=== PATIENT | female | born 1940 | race Caucasian/White ===

== ENCOUNTER 2017-07-04 19:31 | Emergency (ER) | payer MEDICARE ==
[~2017-07-04] VITALS: Ht 167.6 cm; Wt 121.3 kg
[~2017-07-04 19:31] MED LIST: ADVAI100I PO; FURO20 PO; GNP50LIQ PO; HYDR10SO PO; MOBI7.5T PO; PERI8.6T PO; RAMI10CA35 PO; RIVA20 PO; ROSU40 PO; ZIAC106.25 PO
[2017-07-04 19:39] VITALS: BP 124/75; PULSE 86; RESP 18; TEMP 98.1; O2SAT 95
[2017-07-04] MEDS ORDERED: MELO7.5T27 PO (19:52)
[2017-07-04] MEDS ORDERED: BISOPROLOL PO (19:52)
[2017-07-04] MEDS ORDERED: ROSU10 PO (19:52)
[2017-07-04] MEDS ORDERED: RAMI10CA PO (19:52)
[2017-07-04] MEDS ORDERED: THERACURMIN PO (19:52)
[2017-07-04] MEDS ORDERED: ADVA250A INH (19:52)
[2017-07-04] MEDS ORDERED: ALPH200C4 PO (19:52)
[2017-07-04] MEDS ORDERED: HYDR-3516 PO (19:52)
[2017-07-04] MEDS ORDERED: XARE10TA PO (19:52)
[2017-07-04] MEDS ORDERED: HYDROCHLOROTHIAZIDE PO (19:52)
[2017-07-04] MEDS ORDERED: CHOL10008 (19:52)
[2017-07-04] MEDS ORDERED: [UNRECOGNIZED DRUG - OTHER] PO (19:52)
[2017-07-04] MEDS ORDERED: SULFAMETHOXAZOLE-TRIMETHOPRIM DS 800-160 MG TAB PO ONE (20:15)
[2017-07-04] MEDS ORDERED: CEPHALEXIN MONOHYDRATE 500 MG CAP PO ONE (20:15)
[2017-07-04] MEDS ORDERED: CEPH-460 PO (20:23)
[2017-07-04] MEDS ORDERED: BACT800T5 PO (20:23)
--- NOTE | 2017-07-04 20:24 | PD ---
HPI Chief Complaint: Skin Problem Time Seen by Provider: 20:03 Travel History International Travel<30 days: No Contact w/Intl Traveler<30days: No Traveled to known affect area: No History of Present Illness HPI 76 old female here with possible abscess formation to a healed abdominal surgical incision. She had her gallbladder removed in January of this year in [place]. She reports the healed surgical site began to itch several days ago and became painful last night with small area of redness. Today she noticed a small area of the incision had opened up and was draining yellowish clear discharge. She denies fever or chills. No abdominal pain. No nausea or vomiting. Symptoms severity is mild. No aggravating or alleviating factors. PFSH Past Medical History Arthritis: Yes Asthma: No Cardiovascular Problems: Yes (AFIB) COPD: Yes Cerebrovascular Accident: No Genitourinary: No Headaches: Yes Hypertension: Yes Neurologic: No Reproductive: No Respiratory: Yes (COPD) Seizures: No Sleep Apnea: Yes Tubal Ligation: Yes Past Surgical History Tonsillectomy: Yes Other Surgery: Yes (bowel resection) Social History Alcohol Use: Yes (every night) Tobacco Use: No Substance Use: No Allergies-Medications (Allergen,Severity, Reaction): Coded Allergies: No Known Allergies (Unverified Adverse Reaction, Unknown, 07/04/17) Reported Meds & Prescriptions Reported Meds & Active Scripts Active Reported [Theracurmin] 300 Mg PO DAILY Alpha Lipoic Acid 200 Mg Cap 200 Mg PO DIRECTED Vitamin D3 (Cholecalciferol) 1,000 Unit Cap 1,000 Units DAILY Hydrocodone-Acetaminophen 5-325 mg Tab 1 Tab PO Q6H PRN [Ziac/Bisoprolol] 10.6-25 Mg PO DAILY Ramipril 10 Mg Cap 10 Mg PO DAILY Advair Diskus Inh (Fluticasone-Salmeterol Inh) 250-50 Mcg/Blist Aer 1 Puff INH BID Rinse mouth after use. Crestor (Rosuvastatin Calcium) 10 Mg Tab 10 Mg PO DAILY Meloxicam 7.5 Mg Tab 7.5 Mg PO DAILY Xarelto (Rivaroxaban) 10 Mg Tab Unknown Dose PO DAILY Review of Systems Except as stated in HPI: all other systems reviewed are Neg General / Constitutional: No: Fever Eyes: No: Visual changes HENT: No: Headaches Cardiovascular: No: Chest Pain or Discomfort Respiratory: No: Shortness of Breath Gastrointestinal: No: Abdominal Pain Genitourinary: No: Dysuria Physical Exam Narrative GENERAL: Alert and well-appearing 76 old female SKIN: Warm and dry. Well-healed surgical scar to the right upper abdomen with a 0.5 cm area that is open with surrounding erythema and draining thin clear yellow discharge. Approximately 2 cm surrounding erythema. No induration or fluctuance. HEAD: Normocephalic. EYES: No injection or drainage. NECK: Supple CARDIOVASCULAR: Regular rate and rhythm RESPIRATORY: Breath sounds equal bilaterally. No accessory muscle use. GASTROINTESTINAL: Abdomen soft, non-tender, obese abdomen. See skin noted above MUSCULOSKELETAL: No cyanosis, or edema. BACK: No CVA tenderness. Data Data Last Documented VS Vital Signs Date Time Temp Pulse Resp B/P (MAP) Pulse Ox O2 Delivery O2 Flow Rate FiO2 07/04/17 19:39 98.1 86 18 124/75 (91) 95 Orders Orders Sulfamet-Trimeth Ds 800-160 Mg (Bactrim (07/04/17 20:15) Cephalexin (Keflex) (07/04/17 20:15) [facility] Medical Decision Making Medical Screen Exam Complete: Yes Emergency Medical Condition: Yes Differential Diagnosis Abscess, fistula, cellulitis Narrative Course 76-year-old female here with what appears to be abscess formation on her abdominal surgical site from the cholecystectomy she had in January of this year. Her abdomen is obese making exam somewhat difficult but it is soft and nontender. She denies any abdominal pain, nausea, vomiting or fevers. She'll be treated for abscess formation with strict return precautions if she fails to improve or if she develops new or worsening symptoms. Diagnosis Primary Impression: Abscess Referrals: Primary Care Physician Additional Instructions: Antibiotics as directed. Cleansed the area with soap and water daily. Apply clean dry dressing daily. Return if he developed new or worsening symptoms. Scripts Cephalexin (Keflex) 500 Mg Capsule 500 MG PO Q6H for Infection for 10 Days, #40 CAP 0 Refills Prov: Nora Ruiz 07/04/17 Sulfamethoxazole-Trimethoprim (Bactrim DS) 800-160 Mg Tab 1 TAB PO BID for Infection, #20 TAB 0 Refills Prov: Nora Ruiz 07/04/17 Disposition: DISCHARGE HOME Condition: Stable Nora Ruiz Jul 04, 2017 20:24
[2017-07-05] MEDS ORDERED: ZIAC106.25 PO (12:27)
== END 2017-07-04 20:32 | disposition home or self-care (01) ==
LOC: PHEFT 19:31
DX: L02.211 Cutaneous abscess of abdominal wall (principal); B96.1 Klebsiella pneumoniae [K. pneumoniae] as the cause of diseases classified elsewhere; M19.90 Unspecified osteoarthritis, unspecified site; I48.91 Unspecified atrial fibrillation; J44.9 Chronic obstructive pulmonary disease, unspecified; I10 Essential (primary) hypertension; G47.30 Sleep apnea, unspecified; Z90.49 Acquired absence of other specified parts of digestive tract; Z79.51 Long term (current) use of inhaled steroids
CPT/HCPCS: 87070; 87077; 87186; 87205; 99283

== ENCOUNTER 2017-07-26 08:17 | Emergency (ER) | payer MEDICARE ==
[~2017-07-26] VITALS: Ht 167.6 cm; Wt 121.0 kg
[~2017-07-26 08:17] MED LIST changes: +ADVA250A INH; -ADVAI100I PO; +ALPH200C4 PO; +BACT800T5 PO; +CEPH-460 PO; +CHOL10008; -FURO20 PO; -GNP50LIQ PO; +HYDR-3516 PO; -HYDR10SO PO; +MELO7.5T27 PO; -MOBI7.5T PO; -PERI8.6T PO; +RAMI10CA PO; -RAMI10CA35 PO; -RIVA20 PO; +ROSU10 PO; -ROSU40 PO; +THERACURMIN PO; +XARE10TA PO
[2017-07-26] MEDS ORDERED: GADODIAMIDE PF 287 MG/ML 5 ML VIAL (for RAD MRI) IV PUSH ONE (08:18)
[2017-07-26 08:21] VITALS: BP 174/83; PULSE 73; RESP 18; TEMP 97.5; O2SAT 100
[2017-07-26 08:45] VITALS: O2SAT 100
[2017-07-26] MEDS ORDERED: SODIUM CHLORIDE 0.9% FLUSH 10 ML FLUSH IV FLUSH PRN (08:45)
--- NOTE | 2017-07-26 08:49 | PD ---
HPI Chief Complaint: Skin Problem Time Seen by Provider: 08:40 Travel History International Travel<30 days: No Contact w/Intl Traveler<30days: No Traveled to known affect area: No History of Present Illness HPI Patient states that she was seen on July 04 for a skin infection with drainage which turned out to be an abscess near her gallbladder scar. She had her gallbladder removed in April. And states that it was complicated surgery and she ended up requiring being placed in a rehab and placed on IV antibiotics for almost a month. The patient then in June was in [place] she states that she is "snowbird" and was seen as an outpatient through an urgent care and given 10 days of antibiotics p.o. for drainage that was coming out from day bottom aspect of her gallbladder scar. Patient today states that starting yesterday she noticed the scab fell off and needs starting to drain again although not as much as it did back in June. However she decided to come in right away because she was concerned. Patient denies any associated fever, rash, abdominal pain, back pain, chest pain, headache, neck pain, runny nose, cough, or sore throat. No alleviating or aggravating factors. No known drug allergy No primary care doctor locally Patient has a past medical history significant for atrial fibrillation on Xarelto, COPD, hypertension status post cholecystectomy and bowel resection PFSH Past Medical History Hx Anticoagulant Therapy: Yes (XERALTO) Arthritis: Yes Asthma: No Cardiovascular Problems: Yes (AFIB) COPD: Yes Cerebrovascular Accident: No Genitourinary: No Headaches: Yes Hypertension: Yes Neurologic: No Reproductive: No Respiratory: Yes (COPD) Seizures: No Sleep Apnea: Yes ?: Not Tubal Ligation: Yes Past Surgical History Tonsillectomy: Yes Other Surgery: Yes (bowel resection) Social History Alcohol Use: Yes (every night) Tobacco Use: No Substance Use: No Allergies-Medications (Allergen,Severity, Reaction): Coded Allergies: No Known Allergies (Unverified Adverse Reaction, Unknown, 07/26/17) Reported Meds & Prescriptions Reported Meds & Active Scripts Active Reported Ziac (Bisoprolol Fumarate/HCTZ) 10-6.25 Mg Tab 1 Tab PO DAILY [Theracurmin] 300 Mg PO DAILY Alpha Lipoic Acid 200 Mg Cap 200 Mg PO DIRECTED Vitamin D3 (Cholecalciferol) 1,000 Unit Cap 1,000 Units DAILY Hydrocodone-Acetaminophen 5-325 mg Tab 1 Tab PO Q6H PRN Ramipril 10 Mg Cap 10 Mg PO DAILY Advair Diskus Inh (Fluticasone-Salmeterol Inh) 250-50 Mcg/Blist Aer 1 Puff INH BID Rinse mouth after use. Crestor (Rosuvastatin Calcium) 10 Mg Tab 10 Mg PO DAILY Meloxicam 7.5 Mg Tab 7.5 Mg PO DAILY Xarelto (Rivaroxaban) 10 Mg Tab Unknown Dose PO DAILY Review of Systems General / Constitutional: No: Fever Eyes: No: Visual changes HENT: No: Headaches Cardiovascular: No: Chest Pain or Discomfort Respiratory: No: Shortness of Breath Gastrointestinal: No: Abdominal Pain Genitourinary: No: Dysuria Musculoskeletal: No: Pain Skin: Positive Lesions Neurologic: No: Weakness Psychiatric: No: Depression Endocrine: No: Polydipsia Hematologic/Lymphatic: No: Easy Bruising Physical Exam Narrative GENERAL: SKIN: Warm and dry. HEAD: Atraumatic. Normocephalic. EYES: Pupils equal and round. No scleral icterus. No injection or drainage. ENT: No nasal bleeding or discharge. Mucous membranes pink and moist. NECK: Trachea midline. No JVD. CARDIOVASCULAR: Regular rate and rhythm. RESPIRATORY: No accessory muscle use. Clear to auscultation. Breath sounds equal bilaterally. GASTROINTESTINAL: Abdomen soft, non-tender, nondistended. MUSCULOSKELETAL: Extremities without clubbing, cyanosis, or edema. No obvious deformities. NEUROLOGICAL: Awake and alert. No obvious cranial nerve deficits. Motor grossly within normal limits. Five out of 5 muscle strength in the arms and legs. Normal speech. PSYCHIATRIC: Appropriate mood and affect; insight and judgment normal. Body 1 - Other (location of cholecystectomy scar which is well healed except for inferior tip/end of scar, which has a small puncture wound with dry drainage around it. no fluctuance or overlying skin cellulitis noted) 2 - Other Data Data Last Documented VS Vital Signs Date Time Temp Pulse Resp B/P (MAP) Pulse Ox O2 Delivery O2 Flow Rate FiO2 07/26/17 12:25 62 16 138/74 (95) 96 Room Air 07/26/17 08:21 97.5 Orders Orders Complete Blood Count With Diff (07/26/17 08:40) Comprehensive Metabolic Panel (07/26/17 08:40) Lipase (07/26/17 08:40) Iv Access Insert/Monitor (07/26/17 08:40) Ecg Monitoring (07/26/17 08:40) Oximetry (07/26/17 08:40) NPO (07/26/17 08:40) Sodium Chloride 0.9% Flush (Ns Flush) (07/26/17 08:45) Mri Abdomen W&W/O Contrast (07/26/17 ) Midazolam Inj (Versed Inj) (07/26/17 10:30) Labs Laboratory Tests Test 07/26/17 09:10 White Blood Count 7.1 TH/MM3 Red Blood Count 4.16 MIL/MM3 Hemoglobin 12.2 GM/DL Hematocrit 36.8 % Mean Corpuscular Volume 88.5 FL Mean Corpuscular Hemoglobin 29.4 PG Mean Corpuscular Hemoglobin Concent 33.2 % Red Cell Distribution Width 14.9 % Platelet Count 160 TH/MM3 Mean Platelet Volume 8.4 FL Neutrophils (%) (Auto) 64.5 % Lymphocytes (%) (Auto) 24.2 % Monocytes (%) (Auto) 6.7 % Eosinophils (%) (Auto) 3.8 % Basophils (%) (Auto) 0.8 % Neutrophils # (Auto) 4.5 TH/MM3 Lymphocytes # (Auto) 1.7 TH/MM3 Monocytes # (Auto) 0.5 TH/MM3 Eosinophils # (Auto) 0.3 TH/MM3 Basophils # (Auto) 0.1 TH/MM3 CBC Comment AUTO DIFF Differential Comment AUTO DIFF CONFIRMED Platelet Estimate NORMAL Platelet Morphology Comment NORMAL Blood Urea Nitrogen 37 MG/DL Creatinine 1.20 MG/DL Random Glucose 94 MG/DL Total Protein 7.8 GM/DL Albumin 3.6 GM/DL Calcium Level 9.5 MG/DL Alkaline Phosphatase 119 U/L Aspartate Amino Transf (AST/SGOT) 37 U/L Alanine Aminotransferase (ALT/SGPT) 38 U/L Total Bilirubin 0.5 MG/DL Sodium Level 142 MEQ/L Potassium Level 4.5 MEQ/L Chloride Level 110 MEQ/L Carbon Dioxide Level 24.3 MEQ/L Anion Gap 8 MEQ/L Estimat Glomerular Filtration Rate 44 ML/MIN Lipase 279 U/L MDM Medical Decision Making Medical Screen Exam Complete: Yes Emergency Medical Condition: Yes Medical Record Reviewed: Yes Differential Diagnosis Superficial cellulitis versus superficial abscess versus intra-abdominal abscess versus retroperitoneal abscess versus fistula Narrative Course Chemistry shows normal electrolytes, abnormal BUN and creatinine consistent with prerenal azotemia with a BUN of 37 and creatinine 1.2 with a GFR of 44. Normal liver functions, normal pancreatic function. CBC is without any leukocytosis, left shift, anemia or abnormal platelet count. MRI read by radiologist as status post cholecystectomy, mild dilation of the common bile duct a 2 cm as well as some dilation of the biliary tree in the left lobe of the liver. There is also small focal nonspecific fluid collection along the mid right anterior to the lateral abdominal wall measuring 2.4 x 1.3 cm with no definite connection inside the peritoneal cavity. Based on the MRI evaluation this is a superficial abdominal infection and that is probably currently draining. No further procedure is necessary, will just continue with p.o. antibiotics for another 20 days or so and continue to promote drainage through the puncture wound that is already present on the inferior aspect of the healed surgical scar Diagnosis Primary Impression: Superficial cellulitis/abscess Patient Instructions: Cellulitis (ED), General Instructions Scripts Doxycycline Hyclate DR (Doxycycline Hyclate DR) 100 Mg Tab 100 MG PO BID for Infection for 10 Days, #20 TAB 0 Refills Prov: Brian Aldana MD 07/26/17 Sulfamethoxazole-Trimethoprim (Bactrim DS) 800-160 Mg Tab 1 TAB PO BID for Infection, #20 TAB 0 Refills Prov: Brian Aldana MD 07/26/17 Disposition: 01 DISCHARGE HOME Condition: Stable Brian Aldana MD Jul 26, 2017 08:49
[2017-07-26 09:25] LABS: AUTOMATED NEUTROPHIL # 4.5 TH/MM3 (1.8-7.7); BASOPHIL # 0.1 TH/MM3 (0-0.2); BASOPHIL % 0.8 % (0.0-2.0); EOSINOPHIL # 0.3 TH/MM3 (0-0.4); EOSINOPHIL % 3.8 % (0.0-4.0); HEMATOCRIT 36.8 % (35.0-46.0); HEMOGLOBIN 12.2 GM/DL (11.6-15.3); LYMPH % 24.2 % (9.0-44.0); LYMPHOCYTE # 1.7 TH/MM3 (1.0-4.8); MEAN CELL VOLUME 88.5 FL (80.0-100.0); MEAN CORPUSCULAR HEMOGLOBIN 29.4 PG (27.0-34.0); MEAN CORPUSCULAR HGB CONC 33.2 % (32.0-36.0); MEAN PLATELET VOLUME 8.4 FL (7.0-11.0); MONO % 6.7 % (0.0-8.0); MONOCYTE # 0.5 TH/MM3 (0-0.9); NEUT % 64.5 % (16.0-70.0); PLATELET COUNT 160 TH/MM3 (150-450); RED BLOOD COUNT 4.16 MIL/MM3 (4.00-5.30); RED CELL DISTRIBUTION WIDTH 14.9 % (11.6-17.2); WHITE BLOOD COUNT 7.1 TH/MM3 (4.0-11.0)
[2017-07-26 09:35] VITALS: BP 113/54; PULSE 60; RESP 18; O2SAT 98
[2017-07-26 09:53] LABS: ALT (GPT) 38 U/L (10-53); AST (GOT) 37 U/L (15-37)
[2017-07-26 09:54] LABS: CALCIUM 9.5 MG/DL (8.5-10.1)
[2017-07-26 09:55] LABS: BICARBONATE 24.3 MEQ/L (21.0-32.0); TOTAL PROTEIN 7.8 GM/DL (6.4-8.2)
[2017-07-26 09:56] LABS: ALKALINE PHOSPHATASE 119 U/L (45-117)
[2017-07-26 09:57] LABS: CHLORIDE 110 MEQ/L (98-107); GLOMERULAR FILTRATION RATE 44 ML/MIN (>89); SODIUM (NA) 142 MEQ/L (136-145)
[2017-07-26 09:58] LABS: ALBUMIN 3.6 GM/DL (3.4-5.0); BLOOD UREA NITROGEN 37 MG/DL (7-18); GLUCOSE,RANDOM 94 MG/DL (74-106)
[2017-07-26 10:06] LABS: TOTAL BILIRUBIN ADULT 0.5 MG/DL (0.2-1.0)
[2017-07-26] MEDS ORDERED: MIDAZOLAM HCL 2 MG/2 ML VIAL IV PUSH ONE (10:30)
[2017-07-26 12:25] VITALS: BP 138/74; PULSE 62; RESP 16; O2SAT 96
--- NOTE | 2017-07-26 12:26 | RADRPT ---
EXAM DATE/TIME: 07/26/2017 11:43 [facility] COMPARISON: No previous studies available for comparison. INDICATIONS : Pt had cholecsytectomy in past. C/O drainage from incision area on right. CONTRAST: 23 cc Omniscan (gadodiamide) IV MEDICAL HISTORY : Hypertension. Afib. SURGICAL HISTORY : Cholecystectomy. ENCOUNTER: Initial ACUITY: 2 day PAIN SCORE: 3/10 LOCATION: abdomen TECHNIQUE: Multiplanar, multisequence magnetic resonance imaging of the abdomen was performed without and with i ntravenous contrast. The exam is limited due to motion artifact from breathing on almost all of the i mages. The exam is also limited due to patient's body habitus. FINDINGS: LIVER: Normal size with normal signal intensity. No lesion is identified. Portal vein is within normal limi ts. BILIARY: There does appear to be some dilatation of the biliary tree especially involving the left lobe of the liver. The common bile duct is dilated at 2.0 cm. The gallbladder has been surgically removed. No fr ee fluid or loculated fluid collections are seen in the abdomen. SPLEEN: Within normal limits. PANCREAS: Within normal limits. ADRENALS: Within normal limits. KIDNEYS: Normal size and signal intensity. There is no hydronephrosis or mass. OTHER: There is a small nonspecific fluid collection noted in the right lateral anterior bowel wall along th e mid abdominal area. There is some surrounding inflammatory changes. The small fluid collection inocencio ures 2.4 x 1.3 cm. No definite connection inside the peritoneal cavity is demonstrated. CONCLUSION: 1. Limited examination. 2. Status post cholecystectomy with some dilatation of the common bile duct a 2.0 cm as well as some dilatation of the biliary tree in the left lobe of the liver. If clinically indicated, recommend ERCP for further evaluation. 3. Small focal nonspecific fluid collection along the mid right anterior lateral abdominal wall measu ring 2.4 x 1.3 cm with no definite connection inside the peritoneal cavity. Dmitry Jung MD on July 26, 2017 at 12:17 Board Certified Radiologist. This report was verified electronically.
[2017-07-26] MEDS ORDERED: BACT800T5 PO (12:39)
[2017-07-26] MEDS ORDERED: DOXY1TAB6 PO (12:39)
== END 2017-07-26 13:00 | disposition home or self-care (01) ==
LOC: PHED 08:17
DX: L02.91 Cutaneous abscess, unspecified (principal); I10 Essential (primary) hypertension; I48.91 Unspecified atrial fibrillation; Z79.01 Long term (current) use of anticoagulants
CPT/HCPCS: 74183; 80053; 83690; 85025; 96374; 99285; A9579; J2250